=== PATIENT | female | born 1935 | race Caucasian/White ===

== ENCOUNTER 2016-06-11 04:37 | Emergency (ER) | payer OTHER, MEDICARE ==
[~2016-06-11] VITALS: Ht 162.6 cm; Wt 71.2 kg
[2016-06-11 04:37] VITALS: BP_SYST 200
[~2016-06-11 04:37] MED LIST: BETA1TAB18 PO; CARB1TAB29 PO; CARV12.548 PO; CLI.05P TD; FOLI-43 PO; HYPR10DR OP; MIRA25TA PO; PIOG30TA26 PO; RISE35TA PO; RIVA20TA PO; SIMV20TA6 PO; TROS60CA3 PO; VIT1TAB.9 PO
--- NOTE | 2016-06-11 04:37 | NUR ---
Patient to ER bed 7 to gown for evaluation. Side rails up. Report given to Katelin RICHMOND.
--- NOTE | 2016-06-11 04:40 | NUR ---
Pt brought in by , pt c/o burning upon urination. Pt also has elevated BP. Taking carvedilol at home. Pt reports she has recently completed Keflex for UTI. Pt has hx of recurring UTIs, in which several abx have been taken. Pt reports she does not change diapers frequently and does not provide perineal care w each diaper change. Educated pt and re perineal care/freq diaper changes to prevent recurring UTIs. Both verbalize understanding. No acute distress noted, will continue to monitor.
--- NOTE | 2016-06-11 04:45 | NUR ---
ER at bedside examining patient.
--- NOTE | 2016-06-11 04:55 | NUR ---
Put straight catheter in pt to get urine sample. Bourbon colored urine noted d/t pyridium that pt took at home. Pt tolerates catherizing procedure well. Pt's brief changed.
[2016-06-11] MEDS ORDERED: SULFAMETHOXAZOLE/TRIMETHOPR DS 1 TABLET PO ONE (05:00)
[2016-06-11] MEDS ORDERED: PHENAZOPYRIDINE HCL 100 MG TABLET PO ONE (05:00)
--- NOTE | 2016-06-11 05:01 | NUR ---
Pyridium held because pt states that she already took this medication this morning
--- NOTE | 2016-06-11 05:16 | NUR ---
Pt BP elevated 210/74. Dr Fenton aware of BP, no new orders obtained. Reinforced w pt to take home BP meds as ordered. Pt verbalized understanding.
[2016-06-11 05:36] LABS: BILIRUBIN,URINE NEGATIVE (NEGATIVE); CLARITY/URINE SL CLOUDY (CLEAR); COLOR,URINE YELLOW (YELLOW); GLUCOSE,URINE NEGATIVE (NEGATIVE); KETONES,URINE NEGATIVE (NEGATIVE); LEUKOCYTE ESTERASE ,URINE 1+ (NEGATIVE); NITRITE, URINE POSITIVE (NEGATIVE); PROTEIN URINE 2+ (NEGATIVE)
[2016-06-11 05:41] LABS: BLOOD, URINE TRACE (NEGATIVE)
[2016-06-11 05:48] LABS: BACTERIA,URINE MANY /HPF (None Seen); MUCUS,URINE None Seen /LPF (None Seen); RBC,URINE 0-3 /HPF (0-3); WBC,URINE 50-80 /HPF (0-3)
[2016-06-11 05:50] VITALS: BP_SYST 210
--- NOTE | 2016-06-11 05:50 | NUR ---
Patient given written and verbal discharge instructions and verbalizes understanding. ER MD discussed with patient the results and treatment provided. Patient in stable condition. ID arm band removed. Rx of Bactrim and Pyridium given. Patient educated on pain management and to follow up with PMD. Pain Scale 6/10. Opportunity for questions provided and answered.
--- NOTE | 2016-06-13 14:37 | NUR ---
Final C & S report reviewed, identified organism is suseptible to Bactrim as previously prescribed. No further action is indicated.
== END 2016-06-11 05:50 | disposition home or self-care (01) ==
LOC: SED 04:37
DX: N39.0 Urinary tract infection, site not specified (principal); G20 Parkinson's disease; E11.9 Type 2 diabetes mellitus without complications; I10 Essential (primary) hypertension; Z95.0 Presence of cardiac pacemaker; Z86.79 Personal history of other diseases of the circulatory system; Z88.1 Allergy status to other antibiotic agents; Z91.02 Food additives allergy status
CPT/HCPCS: 81000-TC; 87086; 87186-TC; 99284

== ENCOUNTER 2016-10-17 20:22 | Inpatient (IN) | payer OTHER, MEDICARE ==
[~2016-10-17] VITALS: Ht 157.5 cm; Wt 72.6 kg
[2016-10-17 20:30] VITALS: BP_SYST 213
[2016-10-17] MEDS ORDERED: ROPI0.252 PO (20:54)
[2016-10-17] MEDS ORDERED: [UNRECOGNIZED DRUG - OTHER] PEG (20:54)
[2016-10-17] MEDS ORDERED: METH1TAB35 PO (20:54)
[2016-10-17] MEDS ORDERED: BIFI10.5 PO (20:54)
[2016-10-17] MEDS ORDERED: ESTR42.53 VG (20:54)
[2016-10-17] MEDS ORDERED: NITROGLYCERIN 0.4 MG TAB.SUBL SL ONE (21:00)
[2016-10-17 21:02] LABS: BASOPHILS # (AUTO) 0.1 K/uL (0.0-0.2); BASOPHILS % (AUTO) 1.7 % (0.0-2.0); EOSINOPHILS # (AUTO) 0.2 K/uL (0.0-0.4); EOSINOPHILS % (AUTO) 2.7 % (0.0-4.0); HEMATOCRIT 40.4 % (36-48); HEMOGLOBIN 13.2 g/dL (12.0-16.0); LYMPHOCYTES # (AUTO) 0.8 K/uL (1.0-5.5); MEAN CORPUSCULAR HEMOGLOBIN 31 pg (27-31); MEAN CORPUSCULAR HGB CONC 33 % (32-36); MEAN CORPUSCULAR VOLUME 94 fL (79.0-98.0); MONOCYTES # (AUTO) 0.8 K/uL (0.0-1.0); MONOCYTES % (AUTO) 9.1 % (1.7-9.3); NEUTROPHILS # (AUTO) 6.4 K/uL (1.8-7.7); NEUTROPHILS % (AUTO) 76.5 % (40.0-70.0); PLATELET COUNT (AUTO) 198 K/uL (130-430); RED BLOOD CELL COUNT(AUTO) 4.31 MIL/uL (4.2-6.2); RED CELL DISTRIBUTION WIDTH 13.5 % (9.0-15.0); WHITE BLOOD COUNT (AUTO) 8.3 K/uL (4.8-10.8)
[2016-10-17 21:10] LABS: ANION GAP 9 (5-15); CALCIUM 9.2 mg/dL (8.4-11.0); CHLORIDE 106 mmol/L (98-107); CREATININE 1.25 mg/dL (0.55-1.30); GLUCOSE 101 mg/dL (70-99); SODIUM SERUM 141 mmol/L (136-145); UREA NITROGEN, BLOOD 27 mg/dL (8-21)
[2016-10-17 21:18] LABS: ALANINE AMINOTRANSFERASE 9 U/L (12-78); ALBUMIN 3.7 g/dL (3.4-4.8); ASPARTATE AMINOTRANSFERASE 11 U/L (10-37); TOTAL BILIRUBIN 0.6 mg/dL (0.0-1.0); TOTAL PROTEIN, SERUM 7.1 g/dL (6.4-8.3)
[2016-10-17] MEDS ORDERED: GLUCAGON,HUMAN RECOMBINANT 1 MG VIAL IVP ONE (21:45)
[2016-10-17] MEDS ORDERED: NITROGLYCERIN 1 INCH (GM) OINT. TP ONE (22:15)
[2016-10-17] MEDS ORDERED: hydrALAZINE HCL 20 MG/ML VIAL IVP ONE (22:15)
[2016-10-17 22:41] LABS: INR 1.1 (0.8-1.2); PROTHROMBIN TIME 11.9 SECS (9.5-12.5)
[2016-10-17] MEDS ORDERED: INSULIN REGULAR, HUMAN 100 UNITS/ML, 10 ML VIAL (novoLIN R) SUBCUT PRN ×2 (22:45→23:00)
[2016-10-17] MEDS ORDERED: D5/0.45 NS 1,000 ML IV SCH (22:45)
[2016-10-17] MEDS ORDERED: hydrALAZINE HCL 20 MG/ML VIAL IVP PRN ×2 (22:45→23:00)
[2016-10-17 23:10] VITALS: BP_SYST 168
[2016-10-18] VITALS (7 sets, daily range): BP systolic 116–173
[2016-10-18 01:03] LABS: BILIRUBIN,URINE NEGATIVE (NEGATIVE); CLARITY/URINE CLEAR (CLEAR); COLOR,URINE YELLOW (YELLOW); GLUCOSE,URINE NEGATIVE (NEGATIVE); KETONES,URINE TRACE (NEGATIVE); LEUKOCYTE ESTERASE ,URINE NEGATIVE (NEGATIVE); NITRITE, URINE NEGATIVE (NEGATIVE); PROTEIN URINE NEGATIVE (NEGATIVE); UROBILINOGEN,URINE 0.2 (0.2-1.0)
[2016-10-18 01:12] LABS: BLOOD, URINE TRACE (NEGATIVE)
[2016-10-18 01:14] LABS: BACTERIA,URINE MODERATE /HPF (None Seen); RBC,URINE 0-3 /HPF (0-3); WBC,URINE 0-3 /HPF (0-3)
[2016-10-18] MEDS: D5/0.45 NS 1,000 ML IV SCH ×2 (01:23→17:17)
[2016-10-18] MEDS: roPINIRole HCL 0.25 MG ( REQUIP )TABLET PO SCH ×2 (08:34→21:02)
[2016-10-18] MEDS: CARVEDILOL 12.5 MG TABLET (COREG) PO SCH ×2 (08:34→21:01)
[2016-10-18] MEDS: CARBIDOPA/LEVODOPA 25/100 MG TABLET PO SCH ×3 (08:35→21:00)
[2016-10-18] MEDS: ASPIRIN 81 MG TAB.CHEW PO SCH (08:35)
[2016-10-18] MEDS ORDERED: ASPIRIN 81 MG TAB.CHEW PO SCH (09:00)
[2016-10-18] MEDS ORDERED: CARBIDOPA/LEVODOPA 25/100 MG TABLET PO SCH (09:00)
[2016-10-18] MEDS ORDERED: CARVEDILOL 12.5 MG TABLET (COREG) PO SCH (09:00)
[2016-10-18] MEDS ORDERED: PIOGLITAZONE HCL 30 MG TABLET PO SCH ×2 (09:00)
[2016-10-18] MEDS ORDERED: ENOXAPARIN SODIUM 40 MG/0.4 ML SYRINGE SUBCUT SCH ×2 (09:00)
[2016-10-18] MEDS ORDERED: roPINIRole HCL 0.25 MG ( REQUIP )TABLET PO SCH (09:00)
[2016-10-18] MEDS ORDERED: SIMVASTATIN 20 MG TABLET PO SCH (09:00)
[2016-10-18] MEDS ORDERED: PANTOPRAZOLE SODIUM 40 MG/VIAL (PROTONIX) IVP SCH (10:15)
[2016-10-18] MEDS ORDERED: PANTOPRAZOLE SODIUM 40 MG/VIAL (PROTONIX) IVP ONE (12:45)
[2016-10-18] MEDS: RIVAROXABAN 10 MG TABLET PO SCH (17:13)
[2016-10-18] MEDS ORDERED: RIVAROXABAN 10 MG TABLET PO SCH (18:00)
[2016-10-18] MEDS: SIMVASTATIN 20 MG TABLET PO SCH (21:02)
[2016-10-19 00:13] VITALS: BP_SYST 11
[2016-10-19 04:09] VITALS: BP_SYST 112
[2016-10-19 07:46] LABS: BASOPHILS % (AUTO) 0.5 % (0.0-2.0); EOSINOPHILS # (AUTO) 0.4 K/uL (0.0-0.4); EOSINOPHILS % (AUTO) 5.2 % (0.0-4.0); HEMATOCRIT 41.2 % (36-48); HEMOGLOBIN 13.6 g/dL (12.0-16.0); LYMPHOCYTES # (AUTO) 0.9 K/uL (1.0-5.5); LYMPHOCYTES % (AUTO) 12.9 % (20.5-51.5); MEAN CORPUSCULAR HEMOGLOBIN 31 pg (27-31); MEAN CORPUSCULAR HGB CONC 33 % (32-36); MEAN CORPUSCULAR VOLUME 95 fL (79.0-98.0); MONOCYTES # (AUTO) 0.8 K/uL (0.0-1.0); MONOCYTES % (AUTO) 10.9 % (1.7-9.3); NEUTROPHILS # (AUTO) 4.8 K/uL (1.8-7.7); NEUTROPHILS % (AUTO) 70.5 % (40.0-70.0); PLATELET COUNT (AUTO) 178 K/uL (130-430); RED BLOOD CELL COUNT(AUTO) 4.36 MIL/uL (4.2-6.2); RED CELL DISTRIBUTION WIDTH 13.1 % (9.0-15.0); WHITE BLOOD COUNT (AUTO) 6.9 K/uL (4.8-10.8)
[2016-10-19 07:56] VITALS: BP_SYST 147
[2016-10-19 07:58] LABS: ANION GAP 5 (5-15); CALCIUM 8.7 mg/dL (8.4-11.0); CHLORIDE 106 mmol/L (98-107); CREATININE 1.15 mg/dL (0.55-1.30); GLUCOSE 108 mg/dL (70-99); INR 1.2 (0.8-1.2); POTASSIUM 3.3 mmol/L (3.5-5.1); PROTHROMBIN TIME 12.6 SECS (9.5-12.5); SODIUM SERUM 137 mmol/L (136-145); UREA NITROGEN, BLOOD 18 mg/dL (8-21)
[2016-10-19] MEDS: PANTOPRAZOLE SODIUM 40 MG/VIAL (PROTONIX) IVP SCH (08:08)
[2016-10-19] MEDS: CARBIDOPA/LEVODOPA 25/100 MG TABLET PO SCH ×3 (09:00→21:22)
[2016-10-19] MEDS ORDERED: LISINOPRIL 5 MG TABLET PO ONE (10:45)
[2016-10-19] MEDS ORDERED: MEPERIDINE HCL/PF 100 MG/ML AMP ONE (11:32)
[2016-10-19] MEDS ORDERED: MIDAZOLAM HCL 5 MG/5 ML VIAL ONE (11:33)
[2016-10-19 12:00] VITALS: BP_SYST 188
[2016-10-19 15:03] VITALS: BP_SYST 147
[2016-10-19] MEDS: ASPIRIN 81 MG TAB.CHEW PO SCH (15:11)
[2016-10-19] MEDS: PIOGLITAZONE HCL 15 MG TABLET PO SCH (15:12)
[2016-10-19] MEDS: roPINIRole HCL 0.25 MG ( REQUIP )TABLET PO SCH ×2 (15:12→21:22)
[2016-10-19] MEDS: CARVEDILOL 12.5 MG TABLET (COREG) PO SCH ×2 (15:13→21:00)
[2016-10-19] MEDS: RIVAROXABAN 10 MG TABLET PO SCH (17:30)
[2016-10-19 19:22] VITALS: BP_SYST 142
[2016-10-19] MEDS: SIMVASTATIN 20 MG TABLET PO SCH (21:22)
[2016-10-19] MEDS: D5/0.45 NS 1,000 ML IV SCH ×2 (21:23)
[2016-10-20 00:27] VITALS: BP_SYST 129
[2016-10-20] MEDS: D5/0.45 NS 1,000 ML IV SCH (01:52)
[2016-10-20 05:19] VITALS: BP_SYST 145
[2016-10-20 08:32] VITALS: BP_SYST 141
[2016-10-20] MEDS ORDERED: LISINOPRIL 5 MG TABLET PO SCH ×2 (09:00)
[2016-10-20] MEDS: ASPIRIN 81 MG TAB.CHEW PO SCH (09:05)
[2016-10-20] MEDS: CARBIDOPA/LEVODOPA 25/100 MG TABLET PO SCH (09:05)
[2016-10-20] MEDS: PIOGLITAZONE HCL 15 MG TABLET PO SCH (09:05)
[2016-10-20] MEDS: roPINIRole HCL 0.25 MG ( REQUIP )TABLET PO SCH (09:06)
[2016-10-20] MEDS: CARVEDILOL 12.5 MG TABLET (COREG) PO SCH (09:06)
[2016-10-20] MEDS: PANTOPRAZOLE SODIUM 40 MG/VIAL (PROTONIX) IVP SCH (09:06)
[2016-10-20 11:28] VITALS: BP_SYST 134
[2016-10-20 13:25] VITALS: BP_SYST 134
== END 2016-10-20 15:26 | disposition home or self-care (01) | DRG 882 ==
LOC: SED 20:22 → STU 22:45 → SED 22:54 → STU 23:25 → SMU 10-19 12:00
PROC: 0DB68ZX Excision of Stomach, Via Natural or Artificial Opening Endoscopic, Diagnostic (ICD-10-PCS; 2016-10-19)
PROC: 0D758ZZ Dilation of Esophagus, Via Natural or Artificial Opening Endoscopic (ICD-10-PCS; principal; 2016-10-19 12:00)
DX: F45.8 Other somatoform disorders (principal); I42.9 Cardiomyopathy, unspecified; K22.9 Disease of esophagus, unspecified; I16.0 Hypertensive urgency; E11.9 Type 2 diabetes mellitus without complications; I10 Essential (primary) hypertension; G20 Parkinson's disease; E78.5 Hyperlipidemia, unspecified; K29.70 Gastritis, unspecified, without bleeding; I48.0 Paroxysmal atrial fibrillation; K20.9 Esophagitis, unspecified; Z82.49 Family history of ischemic heart disease and other diseases of the circulatory system; Z87.440 Personal history of urinary (tract) infections; Z95.0 Presence of cardiac pacemaker; Z88.1 Allergy status to other antibiotic agents; Z91.048 Other nonmedicinal substance allergy status; Z79.899 Other long term (current) drug therapy; Z86.73 Personal history of transient ischemic attack (TIA), and cerebral infarction without residual deficits; Z79.01 Long term (current) use of anticoagulants
CPT/HCPCS: 36415; 43239; 70360-TC; 70450-TC; 71010; 80048; 80053; 81000-TC; 82962; 83880; 84484; 85025; 85610-TC; 85730-TC; 87081; 87086; 93005; 96374; 96375; 97116-GP; 99285; C9113; J0360; J1610; J1815; J2175; J2250; J7030

== ENCOUNTER 2017-09-27 09:02 | Inpatient (IN) | payer OTHER, MEDICARE ==
[~2017-09-27] VITALS: Ht 154.9 cm; Wt 74.8 kg
[~2017-09-27 09:02] MED LIST changes: +BIFI10.5 PO; -CLI.05P TD; +ESTR42.53 VG; +METH1TAB35 PO; -PIOG30TA26 PO; +ROPI0.252 PO; +[UNRECOGNIZED DRUG - OTHER] PEG
[2017-09-27 09:03] VITALS: BP_SYST 210
[2017-09-27] MEDS ORDERED: KETOROLAC TROMETHAMINE 15 MG VIAL IVP ONE (09:30)
[2017-09-27] MEDS ORDERED: NACL 0.9% 1,000 ML IV ONE ×2 (09:30→12:45)
[2017-09-27 09:54] LABS: BASOPHILS % (AUTO) 0.5 % (0.0-2.0); EOSINOPHILS # (AUTO) 0.4 K/uL (0.0-0.4); EOSINOPHILS % (AUTO) 4.7 % (0.0-4.0); HEMATOCRIT 42.9 % (36-48); HEMOGLOBIN 14.3 g/dL (12.0-16.0); LYMPHOCYTES # (AUTO) 0.6 K/uL (1.0-5.5); LYMPHOCYTES % (AUTO) 6.3 % (20.5-51.5); MEAN CORPUSCULAR HEMOGLOBIN 31 pg (27-31); MEAN CORPUSCULAR HGB CONC 33 % (32-36); MEAN CORPUSCULAR VOLUME 93 fL (79.0-98.0); MONOCYTES # (AUTO) 0.6 K/uL (0.0-1.0); MONOCYTES % (AUTO) 6.7 % (1.7-9.3); NEUTROPHILS # (AUTO) 7.9 K/uL (1.8-7.7); NEUTROPHILS % (AUTO) 81.8 % (40.0-70.0); PLATELET COUNT (AUTO) 191 K/uL (130-430); RED BLOOD CELL COUNT(AUTO) 4.61 MIL/uL (4.2-6.2); RED CELL DISTRIBUTION WIDTH 14.3 % (9.0-15.0); WHITE BLOOD COUNT (AUTO) 9.5 K/uL (4.8-10.8)
[2017-09-27 10:05] LABS: ANION GAP 6 (5-15); CALCIUM 9.6 mg/dL (8.4-11.0); CHLORIDE 108 mmol/L (98-107); CREATININE 1.19 mg/dL (0.55-1.30); GLUCOSE 110 mg/dL (70-99); POTASSIUM 4.3 mmol/L (3.5-5.1); SODIUM SERUM 141 mmol/L (136-145); UREA NITROGEN, BLOOD 26 mg/dL (8-21)
[2017-09-27 10:11] LABS: ALANINE AMINOTRANSFERASE 14 U/L (12-78); ALBUMIN 3.4 g/dL (3.4-4.8); ASPARTATE AMINOTRANSFERASE 15 U/L (10-37); LIPASE 226 U/L (73-393); TOTAL BILIRUBIN 0.8 mg/dL (0.0-1.0)
[2017-09-27] MEDS ORDERED: ERGO500020 PO (10:19)
[2017-09-27] MEDS ORDERED: [UNRECOGNIZED DRUG - OTHER] TP (10:19)
[2017-09-27] MEDS ORDERED: LISI10TA5 PO (10:19)
[2017-09-27] MEDS ORDERED: [UNRECOGNIZED DRUG - OTHER] PO (10:19)
[2017-09-27] MEDS ORDERED: CARV25TA55 PO (10:19)
[2017-09-27] MEDS ORDERED: VIT1CAPS46 PO (10:19)
[2017-09-27] MEDS ORDERED: CARB1TAB10 PO (10:19)
[2017-09-27] MEDS ORDERED: PIOG15TA8 PO (10:19)
[2017-09-27] MEDS ORDERED: CRAN200C5 PO (10:19)
[2017-09-27] MEDS ORDERED: LIGH1DRO OP (10:19)
[2017-09-27 10:20] LABS: BILIRUBIN,URINE NEGATIVE (NEGATIVE); BLOOD, URINE 1+ (NEGATIVE); CLARITY/URINE CLEAR (CLEAR); COLOR,URINE YELLOW (YELLOW); GLUCOSE,URINE NEGATIVE (NEGATIVE); KETONES,URINE NEGATIVE (NEGATIVE); LEUKOCYTE ESTERASE ,URINE 3+ (NEGATIVE); NITRITE, URINE POSITIVE (NEGATIVE); PROTEIN URINE 1+ (NEGATIVE); UROBILINOGEN,URINE 0.2 (0.2-1.0)
[2017-09-27 10:41] LABS: BACTERIA,URINE MANY /HPF (None Seen); WBC,URINE 20-50 /HPF (0-3)
[2017-09-27 10:42] LABS: MUCUS,URINE None Seen /LPF (None Seen)
[2017-09-27] MEDS ORDERED: PIPERACILLIN/TAZO 3.375 GM in NS 50 ML IV ONE (12:30)
[2017-09-27] MEDS ORDERED: PIPERACILLIN/TAZOBACTAM 3.375 GM/VIAL (ZOSYN) IV ONE (12:39)
[2017-09-27 13:24] VITALS: BP_SYST 200
[2017-09-27] MEDS ORDERED: ENALAPRILAT DIHYDRATE 1.25 MG/ML VIAL IVP ONE (13:30)
[2017-09-27] MEDS ORDERED: MORPHINE 2 MG/ML INJ. SYRINGE IVP PRN (13:45)
[2017-09-27] MEDS ORDERED: METOCLOPRAMIDE HCL 10 MG/2 ML VIAL IVP PRN (13:45)
[2017-09-27] MEDS ORDERED: DEXTROSE 50% JECT 50 ML DISP.SYRIN IVP PRN (13:45)
[2017-09-27] MEDS ORDERED: ONDANSETRON HCL 4 MG/2 ML VIAL IVP PRN (13:45)
[2017-09-27] MEDS ORDERED: hydrALAZINE HCL 20 MG/ML VIAL IVP PRN (13:45)
[2017-09-27] MEDS ORDERED: MORPHINE 4 MG/ML INJ. SYRINGE IVP PRN (13:45)
[2017-09-27] MEDS ORDERED: CARVEDILOL 12.5 MG TABLET (COREG) PO ONE (13:45)
[2017-09-27] MEDS ORDERED: LISINOPRIL 10 MG TABLET (PRINIVIL) PO ONE (13:45)
[2017-09-27] MEDS: CARBIDOPA/LEVODOPA 25/100 MG TABLET PO SCH ×2 (14:36→20:41)
[2017-09-27] MEDS: KETOROLAC TROMETHAMINE 15 MG VIAL IVP PRN ×2 (15:36→21:37)
[2017-09-27] MEDS: PIPERACILLIN/TAZO 3.375/DEX-IS 50 ML IV SCH ×2 (15:37→20:39)
[2017-09-27 16:00] VITALS: BP_SYST 160
[2017-09-27] MEDS: D5NS 1,000 ML IV SCH ×2 (18:01→23:45)
[2017-09-27 19:00] VITALS: BP_SYST 197
[2017-09-27 20:00] VITALS: BP_SYST 197
[2017-09-27] MEDS: CARVEDILOL 12.5 MG TABLET (COREG) PO SCH (20:40)
[2017-09-27] MEDS: ENALAPRILAT DIHYDRATE 1.25 MG/ML VIAL IVP PRN (20:45)
[2017-09-27 21:15] VITALS: BP_SYST 161
[2017-09-27] MEDS ORDERED: RIVAROXABAN 10 MG TABLET PO ONE (22:30)
[2017-09-28] MEDS: INSULIN REGULAR, HUMAN 100 UNITS/ML, 10 ML VIAL (novoLIN R) SUBCUT PRN ×3 (00:24→23:21)
[2017-09-28 00:31] VITALS: BP_SYST 132
[2017-09-28] MEDS: PIPERACILLIN/TAZO 3.375/DEX-IS 50 ML IV SCH ×4 (03:11→20:06)
[2017-09-28 06:00] VITALS: BP_SYST 159
[2017-09-28] MEDS: ENALAPRILAT DIHYDRATE 1.25 MG/ML VIAL IVP PRN (06:02)
[2017-09-28 08:58] VITALS: BP_SYST 110
[2017-09-28] MEDS: LISINOPRIL 10 MG TABLET (PRINIVIL) PO SCH (09:00)
[2017-09-28] MEDS: CARBIDOPA/LEVODOPA 25/100 MG TABLET PO SCH ×3 (09:03→20:08)
[2017-09-28] MEDS: D5NS 1,000 ML IV SCH ×2 (09:04→20:05)
[2017-09-28] MEDS: CARVEDILOL 12.5 MG TABLET (COREG) PO SCH ×2 (09:04→20:08)
[2017-09-28 12:28] VITALS: BP_SYST 96
[2017-09-28 16:34] VITALS: BP_SYST 131
[2017-09-28] MEDS: RIVAROXABAN 10 MG TABLET PO SCH (17:33)
[2017-09-28 20:00] VITALS: BP_SYST 136
[2017-09-29 00:33] VITALS: BP_SYST 140
[2017-09-29] MEDS: PIPERACILLIN/TAZO 3.375/DEX-IS 50 ML IV SCH ×4 (02:13→20:54)
[2017-09-29] MEDS: D5NS 1,000 ML IV SCH ×2 (05:14→15:19)
[2017-09-29 08:08] VITALS: BP_SYST 188
[2017-09-29] MEDS: CARBIDOPA/LEVODOPA 25/100 MG TABLET PO SCH ×3 (09:20→20:53)
[2017-09-29] MEDS: CARVEDILOL 12.5 MG TABLET (COREG) PO SCH ×2 (09:21→20:53)
[2017-09-29] MEDS: LISINOPRIL 10 MG TABLET (PRINIVIL) PO SCH (09:21)
[2017-09-29] MEDS: KETOROLAC TROMETHAMINE 15 MG VIAL IVP PRN (09:23)
[2017-09-29 12:00] VITALS: BP_SYST 125
[2017-09-29 16:00] VITALS: BP_SYST 132
[2017-09-29] MEDS: RIVAROXABAN 10 MG TABLET PO SCH (17:11)
[2017-09-29 20:35] VITALS: BP_SYST 195
[2017-09-29] MEDS: ACETAMINOPHEN 325 MG TABLET PO PRN (20:52)
[2017-09-29 22:20] VITALS: BP_SYST 152
[2017-09-30] VITALS (7 sets, daily range): BP systolic 132–186
[2017-09-30] MEDS: ENALAPRILAT DIHYDRATE 1.25 MG/ML VIAL IVP PRN ×2 (00:15→16:12)
[2017-09-30] MEDS: D5NS 1,000 ML IV SCH (02:37)
[2017-09-30] MEDS: PIPERACILLIN/TAZO 3.375/DEX-IS 50 ML IV SCH ×3 (02:38→16:02)
[2017-09-30] MEDS ORDERED: hydrALAZINE HCL 20 MG/ML VIAL ONE (02:42)
[2017-09-30] MEDS: KETOROLAC TROMETHAMINE 15 MG VIAL IVP PRN (04:55)
[2017-09-30] MEDS: CARBIDOPA/LEVODOPA 25/100 MG TABLET PO SCH ×2 (09:02→15:59)
[2017-09-30] MEDS: CARVEDILOL 12.5 MG TABLET (COREG) PO SCH (09:02)
[2017-09-30] MEDS: LISINOPRIL 10 MG TABLET (PRINIVIL) PO SCH (09:03)
[2017-09-30] MEDS: ACETAMINOPHEN 325 MG TABLET PO PRN (09:17)
[2017-09-30] MEDS ORDERED: LEVO500T20 PO (17:09)
[2017-09-30] MEDS ORDERED: METR500T PO (17:10)
== END 2017-09-30 18:50 | disposition home or self-care (01) | DRG 392 ==
LOC: SED 09:02 → SMU 12:53
PROVIDERS: ADMIT Internal Medicine Hospice and Palliative Medicine; ATTEND Internal Medicine Hospice and Palliative Medicine
DX: K57.92 Diverticulitis of intestine, part unspecified, without perforation or abscess without bleeding (principal); N39.0 Urinary tract infection, site not specified; I10 Essential (primary) hypertension; G20 Parkinson's disease; E11.9 Type 2 diabetes mellitus without complications; Z95.0 Presence of cardiac pacemaker; Z88.1 Allergy status to other antibiotic agents; Z91.041 Radiographic dye allergy status; Z79.899 Other long term (current) drug therapy
CPT/HCPCS: 36415; 36600; 71045; 80053; 81000-TC; 82803-TC; 82962; 83605; 83690-TC; 84484; 85025; 85610-TC; 85730-TC; 87040-TC; 87081; 87086; 87186-TC; 93005; 96360; 96361; 96365; 96375; 97110-GP; 97116-GP; 97530-GP; 99285; J0360; J1815; J1885; J2543; J7030; J7042

== ENCOUNTER 2017-10-01 12:49 | Inpatient (IN) | payer OTHER, MEDICARE ==
[~2017-10-01] VITALS: Ht 154.9 cm; Wt 76.2 kg
[~2017-10-01 12:49] MED LIST changes: +CARV25TA55 PO; +CRAN200C5 PO; +ERGO500043 PO; +LEVO500T20 PO; +LIGH1DRO OP; +LISI10TA5 PO; +METR500T PO; +PIOG15TA66 PO; +VIT1CAPS46 PO; +[UNRECOGNIZED DRUG - OTHER] PO; +[UNRECOGNIZED DRUG - OTHER] TP
[2017-10-01 12:53] VITALS: BP_SYST 137
[2017-10-01] MEDS ORDERED: NACL 0.9% 1,000 ML IV ONE (13:30)
[2017-10-01 14:08] LABS: BILIRUBIN,URINE NEGATIVE (NEGATIVE); CLARITY/URINE CLEAR (CLEAR); COLOR,URINE YELLOW (YELLOW); GLUCOSE,URINE NEGATIVE (NEGATIVE); KETONES,URINE NEGATIVE (NEGATIVE); LEUKOCYTE ESTERASE ,URINE NEGATIVE (NEGATIVE); NITRITE, URINE NEGATIVE (NEGATIVE); PROTEIN URINE TRACE (NEGATIVE); UROBILINOGEN,URINE 0.2 (0.2-1.0)
[2017-10-01 14:09] LABS: BLOOD, URINE TRACE (NEGATIVE)
[2017-10-01 14:16] LABS: ANION GAP 5 (5-15); CALCIUM 9.3 mg/dL (8.4-11.0); CHLORIDE 111 mmol/L (98-107); CREATININE 1.58 mg/dL (0.55-1.30); GLUCOSE 101 mg/dL (70-99); POTASSIUM 3.3 mmol/L (3.5-5.1); SODIUM SERUM 142 mmol/L (136-145); UREA NITROGEN, BLOOD 18 mg/dL (8-21)
[2017-10-01 14:20] LABS: ALANINE AMINOTRANSFERASE 7 U/L (12-78); ASPARTATE AMINOTRANSFERASE 16 U/L (10-37); TOTAL BILIRUBIN 0.7 mg/dL (0.0-1.0)
[2017-10-01 14:22] LABS: BACTERIA,URINE RARE /HPF (None Seen); MUCUS,URINE None Seen /LPF (None Seen); RBC,URINE 0-3 /HPF (0-3); WBC,URINE 0-3 /HPF (0-3)
[2017-10-01 14:25] LABS: INR 1.1 (0.8-1.2); PROTHROMBIN TIME 11.2 SECS (9.5-12.5)
[2017-10-01 14:28] LABS: BASOPHILS # (AUTO) 0.1 K/uL (0.0-0.2); BASOPHILS % (AUTO) 0.8 % (0.0-2.0); EOSINOPHILS # (AUTO) 0.3 K/uL (0.0-0.4); EOSINOPHILS % (AUTO) 2.5 % (0.0-4.0); HEMATOCRIT 36.9 % (36-48); HEMOGLOBIN 12.6 g/dL (12.0-16.0); LYMPHOCYTES # (AUTO) 0.6 K/uL (1.0-5.5); LYMPHOCYTES % (AUTO) 4.7 % (20.5-51.5); MEAN CORPUSCULAR HEMOGLOBIN 32 pg (27-31); MEAN CORPUSCULAR HGB CONC 34 % (32-36); MEAN CORPUSCULAR VOLUME 94 fL (79.0-98.0); MONOCYTES # (AUTO) 0.9 K/uL (0.0-1.0); MONOCYTES % (AUTO) 7.5 % (1.7-9.3); NEUTROPHILS # (AUTO) 10.2 K/uL (1.8-7.7); NEUTROPHILS % (AUTO) 84.5 % (40.0-70.0); PLATELET COUNT (AUTO) 193 K/uL (130-430); RED BLOOD CELL COUNT(AUTO) 3.95 MIL/uL (4.2-6.2); RED CELL DISTRIBUTION WIDTH 13.8 % (9.0-15.0); WHITE BLOOD COUNT (AUTO) 12.1 K/uL (4.8-10.8)
[2017-10-01] MEDS ORDERED: ASPIRIN 81 MG TAB.CHEW PO ONE (15:00)
[2017-10-01 15:42] VITALS: BP_SYST 177
[2017-10-01 15:59] VITALS: BP_SYST 163
[2017-10-01 16:00] VITALS: BP_SYST 163
[2017-10-01] MEDS ORDERED: INSULIN REGULAR, HUMAN 100 UNITS/ML, 10 ML VIAL (novoLIN R) SUBCUT PRN (19:15)
[2017-10-01] MEDS ORDERED: MORPHINE 2 MG/ML INJ. SYRINGE IVP PRN (19:15)
[2017-10-01] MEDS ORDERED: DEXTROSE 50% JECT 50 ML DISP.SYRIN IVP PRN (19:15)
[2017-10-01] MEDS ORDERED: ONDANSETRON HCL 4 MG/2 ML VIAL IVP PRN (19:15)
[2017-10-01] MEDS ORDERED: MORPHINE 4 MG/ML INJ. SYRINGE IVP PRN (19:15)
[2017-10-01 20:31] VITALS: BP_SYST 157
[2017-10-01] MEDS: metroNIDAZOLE 500 MG TABLET PO SCH (21:10)
[2017-10-01] MEDS: roPINIRole HCL 0.25 MG ( REQUIP )TABLET PO SCH (21:10)
[2017-10-01] MEDS: CARVEDILOL 25 MG TABLET (COREG) PO SCH (21:11)
[2017-10-02 00:26] VITALS: BP_SYST 158
[2017-10-02 06:49] LABS: EOSINOPHILS # (AUTO) 0.5 K/uL (0.0-0.4); HEMOGLOBIN 12.6 g/dL (12.0-16.0); MEAN CORPUSCULAR VOLUME 94 fL (79.0-98.0); MONOCYTES # (AUTO) 0.7 K/uL (0.0-1.0); NEUTROPHILS % (AUTO) 74.1 % (40.0-70.0)
[2017-10-02] MEDS: metroNIDAZOLE 500 MG TABLET PO SCH ×2 (06:51→13:16)
[2017-10-02 07:04] LABS: ALANINE AMINOTRANSFERASE 11 U/L (12-78); ALBUMIN 2.6 g/dL (3.4-4.8); ANION GAP 7 (5-15); ASPARTATE AMINOTRANSFERASE 16 U/L (10-37); CALCIUM 9.1 mg/dL (8.4-11.0); CHLORIDE 112 mmol/L (98-107); CREATININE 1.27 mg/dL (0.55-1.30); GLUCOSE 79 mg/dL (70-99); POTASSIUM 3.4 mmol/L (3.5-5.1); SODIUM SERUM 145 mmol/L (136-145); TOTAL BILIRUBIN 0.7 mg/dL (0.0-1.0); UREA NITROGEN, BLOOD 19 mg/dL (8-21)
[2017-10-02 07:26] LABS: BASOPHILS % (AUTO) 0.6 % (0.0-2.0); HEMATOCRIT 36.4 % (36-48); LYMPHOCYTES # (AUTO) 0.6 K/uL (1.0-5.5); LYMPHOCYTES % (AUTO) 8.5 % (20.5-51.5); MEAN CORPUSCULAR HEMOGLOBIN 32 pg (27-31); MEAN CORPUSCULAR HGB CONC 35 % (32-36); MONOCYTES % (AUTO) 9.8 % (1.7-9.3); NEUTROPHILS # (AUTO) 5.8 K/uL (1.8-7.7); PLATELET COUNT (AUTO) 169 K/uL (130-430); RED BLOOD CELL COUNT(AUTO) 3.88 MIL/uL (4.2-6.2); RED CELL DISTRIBUTION WIDTH 13.8 % (9.0-15.0); WHITE BLOOD COUNT (AUTO) 7.6 K/uL (4.8-10.8)
[2017-10-02 08:00] VITALS: BP_SYST 165
[2017-10-02] MEDS: roPINIRole HCL 0.25 MG ( REQUIP )TABLET PO SCH (08:45)
[2017-10-02] MEDS: CARVEDILOL 25 MG TABLET (COREG) PO SCH (08:46)
[2017-10-02] MEDS ORDERED: PIOGLITAZONE HCL 15 MG TABLET PO SCH (09:00)
[2017-10-02] MEDS ORDERED: LISINOPRIL 10 MG TABLET (PRINIVIL) PO SCH (09:00)
[2017-10-02] MEDS ORDERED: FOLIC ACID 1 MG TABLET PO SCH (09:00)
[2017-10-02] MEDS ORDERED: SIMVASTATIN 20 MG TABLET PO SCH (09:00)
[2017-10-02] MEDS ORDERED: LEVOFLOXACIN 500 MG TABLET PO SCH (11:00)
[2017-10-02 12:37] VITALS: BP_SYST 123
[2017-10-02 12:42] VITALS: BP_SYST 123
[2017-10-02] MEDS ORDERED: RIVAROXABAN 10 MG TABLET PO SCH (18:00)
== END 2017-10-02 14:30 | DRG 391 ==
LOC: SED 12:49 → SMU 14:55
PROVIDERS: ADMIT Internal Medicine Hospice and Palliative Medicine; ATTEND Internal Medicine Hospice and Palliative Medicine
DX: K57.92 Diverticulitis of intestine, part unspecified, without perforation or abscess without bleeding (principal); I21.4 Non-ST elevation (NSTEMI) myocardial infarction; E11.9 Type 2 diabetes mellitus without complications; G20 Parkinson's disease; I48.91 Unspecified atrial fibrillation; I10 Essential (primary) hypertension; Z88.1 Allergy status to other antibiotic agents; Z91.041 Radiographic dye allergy status; Z95.0 Presence of cardiac pacemaker; Z86.73 Personal history of transient ischemic attack (TIA), and cerebral infarction without residual deficits; Z79.82 Long term (current) use of aspirin; Z79.899 Other long term (current) drug therapy; Z79.2 Long term (current) use of antibiotics; Z88.8 Allergy status to other drugs, medicaments and biological substances
CPT/HCPCS: 36415; 36600; 71045; 80053; 81000-TC; 82803-TC; 82962; 83605; 84484; 85025; 85610-TC; 85730-TC; 87040-TC; 87081; 87086; 93005; 96360; 97116-GP; 99285; J1815